=== PATIENT | female | born 1985 | race Caucasian/White ===

== ENCOUNTER 2019-04-14 11:40 | Inpatient (IN) | payer BC ==
[~2019-04-14 11:40] MED LIST: PHENYLEPHRINE-NS 100 MCG/ML 10 ML SYRINGE ONE; ePHEDrine 50 MG/ML VIAL ONE
[2019-04-14] MEDS ORDERED: Promethazine HCl 25 MG/ML VIAL IM PRN ×3 (11:54→17:11)
[2019-04-14] MEDS ORDERED: hydrALAZINE 20 MG/ML VIAL SLOW IVP PRN ×2 (11:54→17:11)
[2019-04-14] MEDS ORDERED: Ondansetron PF 4 MG/2 ML Vial IVP PRN ×3 (11:54→17:11)
[2019-04-14] MEDS ORDERED: CEFAZOLIN 2 GM in Premix Bag 1 BAG IVPB SCH (11:54)
[2019-04-14 12:15] VITALS: BMI 34.3
[2019-04-14 12:25] LABS: Hemoglobin 12.1 g/dL (12.0-16.0); Mean Corpuscular Hemoglobin 31.7 pg (27.0-31.0); Mean Corpuscular Volume 90.7 fL (78.0-98.0); Mean Platelet Volume 7.8 fL (7.4-10.4); Platelet Count 287 thou/uL (130-400); RBC Distribution Width 11.4 % (11.5-14.5)
[2019-04-14] MEDS ORDERED: Bicitra 30 ML UDCUP PO SCH (12:30)
[2019-04-14] MEDS ORDERED: Bicitra 30 ML UDCUP ONE (12:39)
[2019-04-14] MEDS ORDERED: Naloxone HCl 0.4 mg/ml Vial IV PRN (12:43)
[2019-04-14] MEDS ORDERED: Promethazine HCl 25 MG SUPP PR PRN (12:43)
[2019-04-14] MEDS ORDERED: HYDROmorphone 2 MG/ML VIAL SLOW IVP PRN (12:43)
[2019-04-14] MEDS ORDERED: Naloxone HCl 0.4 mg/ml Vial IVP PRN ×2 (12:43)
[2019-04-14] MEDS ORDERED: Ondansetron HCl/PF 4 MG/2 ML Vial IVP PRN (12:43)
[2019-04-14] MEDS ORDERED: diphenhydrAMINE 50 MG/ML VIAL IVP PRN (12:43)
[2019-04-14] MEDS ORDERED: L&D-Morphine 4 MG/ML VIAL SLOW IVP PRN (12:43)
[2019-04-14] MEDS ORDERED: Meperidine HCl/PF 25 MG/ML VIAL SLOW IVP PRN (12:43)
[2019-04-14] MEDS ORDERED: Ketorolac Tromethamine 30 MG/ML VIAL IVP SCH (12:45)
[2019-04-14] MEDS ORDERED: Communication Order-Pharmacy FS SCH (12:45)
[2019-04-14 13:11] LABS: HBSAg Index 0.28 S/CO (0-0.99); Hep B Surf Ag Non-Reactive S/CO (NonReactive); Syphilis Antibody Nonreactive (Nonreactive); Syphilis Antibody Index 0.03 S/CO (<1.00 Non-Reactive)
--- NOTE | 2019-04-14 13:12 | PDOC.LDHP ---
Labor and Delivery H&P Chief complaint: scheduled section HPI: 33yo A1 at 37w3d by LMP here for PCS for breech presentation, GHTN, SUA. No sx PIH, BP at home has been mild range. Pt has had a cough that has improved with zpack. No fever. 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 Current medications: pre-jes vitamins, other (valtrex 500 bid) Previous surgical history: other (carpal tunnel, knee surgery, wide local excision, LEEP x 3, cryotherapy, sinus surgery, egg retrieval, cervical dilation ) Allergies/Adverse Reactions: Allergies Allergy/AdvReac Type Severity Reaction Status Date / Time No Known Allergies Allergy Verified 04/14/19 11:57 Social history: none - Physical Exam Vital signs reviewed and normal: yes General: NAD Heart: RRR Lungs: CTAB Abdomen: gravid Extremeties: no edema FHT: category 1 Pettibone contractions every: none - OB Labs Blood type: A RH: positive Antibody Screen: negative HIV: negative RPR: negative HEPSAg: negative 1 hour GCT: positive 3 hour GTT: neg for GDM GBS: positive Urine drug screen: negative Rubella: immune - Assessment L&D Assessment: scheduled primary section - Plan Plan: admit to L&D, to OR for section, informed consent obtained, anesthesia consult for pain management -: PIH labs ordered, no e/o severe features, will mag for severe features.
[2019-04-14] MEDS ORDERED: MORPHINE 5 MG/10 ML PF VIAL ONE (13:46)
[2019-04-14] MEDS ORDERED: Oxytocin 10 UNITS/ML VIAL ONE (13:46)
[2019-04-14] MEDS ORDERED: ePHEDrine/0.9% NaCl/PF SYRINGE 50 mg/10 ml ONE ×2 (13:46→14:10)
[2019-04-14] MEDS ORDERED: Ondansetron PF 4 MG/2 ML Vial ONE (14:10)
[2019-04-14] MEDS ORDERED: Phenylephrine HCL 10 MG/ML VIAL ONE (14:10)
[2019-04-14] MEDS ORDERED: Bupivacaine 0.75% W/DEXTROSE 8.25% 2 ML AMP ONE (14:11)
--- NOTE | 2019-04-14 14:21 | PDOC.OPDEL ---
OB Operative/Delivery Note Delivery Dr/Surgeon: Ariela Assist: Edwar Pre-Delivery Diagnosis: breech, scheduled section Procedure/Post Delivery Dx: primary low transverse CS Weeks gestation: 37 Anesthesia: spinal - Findings A Sex: male - Additional Findings/Plan Placenta delivered: spontaneous findings: low transverse hysterotomy without extension, normal uterus, normal tubes, normal ovaries Post delivery plan: routine recovery
[2019-04-14] MEDS ORDERED: Lidocaine 2% PF 5 ML VIAL ONE (14:25)
[2019-04-14] MEDS ORDERED: Midazolam HCl 2 mg/2 ml Vial ONE (14:43)
[2019-04-14] MEDS ORDERED: NS / Oxytocin 40 units/1000ml 1,000 ML ONE (15:35)
[2019-04-14] MEDS ORDERED: Ketorolac Tromethamine 30 MG/ML VIAL ONE (16:01)
[2019-04-14] MEDS: Ketorolac Tromethamine 30 MG/ML VIAL IVP PRN ×2 (16:04→21:56)
[2019-04-14] MEDS ORDERED: Meperidine HCl/PF 25 MG/ML VIAL ONE (16:16)
[2019-04-14] MEDS ORDERED: Acetaminophen 325 MG TAB PO PRN (17:11)
[2019-04-14] MEDS ORDERED: Simethicone Chewable 80 MG TAB PO PRN (17:11)
[2019-04-14] MEDS ORDERED: diphenhydrAMINE 25 MG CAP PO PRN (17:11)
[2019-04-14] MEDS ORDERED: Bisacodyl 10 MG SUPP PR PRN (17:11)
[2019-04-14] MEDS ORDERED: Adacel (T-DAP) 0.5 ML SYRINGE IM ONE (17:11)
[2019-04-14] MEDS ORDERED: Lanolin Ointment 7 GM TUBE TOP PRN (17:11)
--- NOTE | 2019-04-14 20:06 | OP ---
DATE OF PROCEDURE: 04/14/2019 PREOPERATIVE DIAGNOSES: 1. Intrauterine at 37 weeks and 3 days. 2. Gestational hypertension. 3. Single umbilical artery. 4. Advanced maternal age. 5. Breech presentation. 6. In vitro fertilization . 7. History of herpes simplex virus. POSTOPERATIVE DIAGNOSES: 1. Intrauterine at 37 weeks and 3 days. 2. Gestational hypertension. 3. Single umbilical artery. 4. Advanced maternal age. 5. Breech presentation. 6. In vitro fertilization . 7. History of herpes simplex virus. PROCEDURE PERFORMED: Primary low-transverse section via Pfannenstiel skin incision. ANESTHESIA: Spinal. CLEAN UP WORKER SURGEON: Shawn Vann MD ESTIMATED BLOOD LOSS: 500 mL. COMPLICATIONS: None. DRAINS: Clancy catheter. PATHOLOGY: None. FINDINGS: Male infant, complete breech presentation, clear amniotic fluid. Apgars and weight are pending. Normal uterus and hysterotomy without extension. Normal-appearing fallopian tubes and ovaries bilaterally. Excellent hemostasis and correct counts. DESCRIPTION OF PROCEDURE: The patient was taken to the operating room, where spinal anesthesia was obtained without difficulty. The patient was prepped and draped in a sterile fashion in the dorsal supine position with a leftward tilt. After ensuring adequacy of anesthesia, a Pfannenstiel skin incision was made and carried down to the underlying subcutaneous tissue with the Bovie. The fascia was nicked in the midline with the Bovie and carried laterally with the Saunders scissors. The superior aspect of the fascia was tented with two Oscar's and dissected off the rectus with the Saunders's. The inferior aspect of the fascia was tented with two Oscar's and dissected off the rectus down to the pubic symphysis with the Saunders's. The rectus was divided in the midline. The peritoneum was bluntly entered into and manually retracted. The Ed O retractor was placed. The lower uterine segment was incised in a transverse fashion and extended with a Miller maneuver. The breech was brought to the hysterotomy. Initially, the right leg delivered, and then the sacrum was rotated to anterior, and the left leg then delivered and the baby was pulled out to the level of the scapula. The baby was rotated in the arms, delivered easily followed by the head with a rotational maneuver. The cord was clamped after delaying the cord, and the was vigorous. Infant was handed to awaiting Regis team. The cord blood was obtained, and placenta was allowed to spontaneously deliver. The uterus was cleared of all clots and debris. The hysterotomy was repaired with 0 Monocryl in a running locking fashion with excellent hemostasis noted. Irrigation was performed of the pelvis, and the Ed O retractor was removed. The rectus muscles were examined and noted to be hemostatic. The fascia was reapproximated with 0 PDS x2 sutures with excellent reapproximation. The skin was irrigated and cauterized of any bleeders and reapproximated with a 2-0 plain gut in a running fashion. The skin was closed with 4-0 Monocryl in a subcuticular fashion. Dermabond was applied as well as a pressure dressing. The patient tolerated the procedure well. Sponge, lap, and needle counts were correct x2. The patient was taken to recovery room in stable condition. The patient received Ancef 2 g prior to the procedure. Job ID: [id number]
[2019-04-14] MEDS: Lactated Ringer's 1,000 ML IV SCH ×2 (21:55→21:57)
[2019-04-14] MEDS: Docusate Calcium (SURFAK) 240 MG CAP PO SCH (21:56)
[2019-04-14] MEDS: Ferrous Sulfate 325 MG TAB PO SCH (21:57)
[2019-04-15] MEDS ORDERED: Zolpidem Tartrate 5 MG TAB PO PRN (00:45)
[2019-04-15] MEDS ORDERED: HYDROcodone/Acetaminophen 5/325 mg Tablet PO PRN (00:45)
[2019-04-15 06:30] LABS: Hemoglobin 10.6 g/dL (12.0-16.0); Mean Corpuscular Hemoglobin 30.4 pg (27.0-31.0); Mean Corpuscular Volume 92.2 fL (78.0-98.0); Mean Platelet Volume 7.9 fL (7.4-10.4); Platelet Count 240 thou/uL (130-400); RBC Distribution Width 11.5 % (11.5-14.5); Red Blood Cell (RBC) Count 3.48 mill/uL (4.20-5.40); White Blood Cell (WBC) Count 13.3 thou/uL (4.8-10.8)
[2019-04-15] MEDS: Ketorolac Tromethamine 30 MG/ML VIAL IVP PRN (06:32)
[2019-04-15] MEDS: Lactated Ringer's 1,000 ML IV SCH ×2 (06:35→22:40)
[2019-04-15] MEDS: Docusate Calcium (SURFAK) 240 MG CAP PO SCH ×2 (09:00→22:11)
[2019-04-15] MEDS: Prenatal Vitamin 1 TAB PO SCH (09:00)
--- NOTE | 2019-04-15 11:21 | OP ---
DATE OF PROCEDURE: 04/14/2019 This report serves as documentation and I was first aid attendant for a primary performed by Dr. Dolly Titus, the primary surgeon. For complete details, please refer to her operative note. Job ID: [id number]
--- NOTE | 2019-04-15 13:20 | PDOC.PP ---
Post Progress Note Post Day #: 1 PO intake tolerated: yes Flatus: yes Ambulation: yes Vital Signs (12 hours) Temp Pulse Resp BP Pulse Ox 04/15/19 12:38 98.3 F 75 20 130/82 96 04/15/19 08:14 98.0 F 74 20 128/67 96 04/15/19 04:35 98.6 F 83 16 129/75 Weight Weight 226 lb - Physical Examination General: NAD Cardiovascular: RRR Respiratory: non-labored breathing Abdominal: no distention, appropriately TTP Fundus firm & at: umb Skin: CS incision dry & intact Neurological: no gross focal deficits Psychiatric: normal affect Result Diagrams: 04/15/19 05:54 Additional Labs: Post Labs Blood Type A POSITIVE 04/14/19 12:47 Hep Bs Antigen Non-Reactive S/CO (NonReactive) 04/14/19 11:59 - Assessment/Plan POD1 s/p PCS for breech, GHTN VSSAF BP wnl, no sx PIH Met appropriate postop milestones Cont Postop care, likely home tomorrow
[2019-04-15] MEDS: Ibuprofen 800 MG TAB PO SCH ×2 (13:37→22:11)
[2019-04-15] MEDS: HYDROcodone/Acetaminophen 5/325 mg Tablet PO PRN ×3 (13:37→22:12)
[2019-04-15] MEDS: Ferrous Sulfate 325 MG TAB PO SCH (22:40)
[2019-04-16] MEDS: HYDROcodone/Acetaminophen 5/325 mg Tablet PO PRN ×5 (05:20→21:30)
[2019-04-16] MEDS: Ibuprofen 800 MG TAB PO SCH ×3 (05:21→21:30)
[2019-04-16] MEDS: Lactated Ringer's 1,000 ML IV SCH ×3 (06:05→20:45)
[2019-04-16] MEDS: Docusate Calcium (SURFAK) 240 MG CAP PO SCH ×2 (09:06→21:30)
[2019-04-16] MEDS: Prenatal Vitamin 1 TAB PO SCH (09:06)
[2019-04-16] MEDS: Ferrous Sulfate 325 MG TAB PO SCH ×2 (09:09→20:45)
--- NOTE | 2019-04-16 10:02 | PDOC.PP ---
Post Progress Note Post Day #: 2 PO intake tolerated: yes Flatus: yes Ambulation: yes Vital Signs (12 hours) Temp Pulse Resp BP Pulse Ox 04/16/19 08:25 98.0 F 70 20 144/80 H 97 04/15/19 23:45 97.9 F 98 20 159/74 H 98 Weight Weight 226 lb - Physical Examination General: NAD Cardiovascular: RRR Respiratory: clear to auscultation bilaterally, non-labored breathing Abdominal: no distention, appropriately TTP Fundus firm & at: umb-2 Extremities: negative homans (B) Skin: CS incision dry & intact (, rash surrounding CS inc where bandage tape present, also erythema around incision extending into mons area, marked with pen to ensure nonexpanding, may be local reaction to tape and bruising, no warmth or induration) Neurological: no gross focal deficits Psychiatric: normal affect Result Diagrams: 04/15/19 05:54 Additional Labs: Post Labs Blood Type A POSITIVE 04/14/19 12:47 Hep Bs Antigen Non-Reactive S/CO (NonReactive) 04/14/19 11:59 - Assessment/Plan POD2 s/p PCS for Breech BP elevated, may need antihypertensives, no sx PIH, other vitals wnl Cough improving on zpack day 4 and tessalon perles, lungs clear Met milestones, cont norco and ibuprofen for pain monitor inc to ensure no e/o expanding infection, clinically appropriately tender Cont to monitor, home tomorrow.
[2019-04-17] MEDS: HYDROcodone/Acetaminophen 5/325 mg Tablet PO PRN ×3 (01:28→10:26)
[2019-04-17] MEDS: Lactated Ringer's 1,000 ML IV SCH ×2 (02:25→10:46)
[2019-04-17] MEDS: Ibuprofen 800 MG TAB PO SCH ×2 (05:24→13:42)
[2019-04-17 08:08] VITALS: BP 133/72; TEMP 98.4
[2019-04-17] MEDS: Ferrous Sulfate 325 MG TAB PO SCH (08:16)
[2019-04-17] MEDS: Docusate Calcium (SURFAK) 240 MG CAP PO SCH (08:25)
[2019-04-17] MEDS: Prenatal Vitamin 1 TAB PO SCH (08:25)
--- NOTE | 2019-04-17 09:15 | PDOC.PP ---
Post Progress Note Post Day #: 3 PO intake tolerated: yes Flatus: yes Ambulation: yes Vital Signs (12 hours) Temp Pulse Resp BP Pulse Ox 04/17/19 08:07 98.4 F 70 20 133/72 95 04/17/19 05:25 68 138/70 04/17/19 01:30 97.7 F 73 18 145/73 H 93 L Weight Weight 226 lb - Physical Examination General: NAD Respiratory: non-labored breathing Abdominal: no distention, appropriately TTP Skin: CS incision dry & intact (redness improved from yesterday, andree ttp, no erythema or warmth) Neurological: no gross focal deficits Psychiatric: normal affect Result Diagrams: 04/15/19 05:54 Additional Labs: Post Labs Blood Type A POSITIVE 04/14/19 12:47 Hep Bs Antigen Non-Reactive S/CO (NonReactive) 04/14/19 11:59 - Assessment/Plan POD3 s/p PCS for breech and GHTN at 37w VSSAF GHTN- BP nl-mild, no sx PIH, will monitor BP at home Pain- cont norco and ibuprofen on DC Cough- improved s/p Zpack Rh pos RImm DC home FU 2 wk
== END 2019-04-17 14:25 | disposition home or self-care (01) | DRG 788 ==
LOC: L&D 11:40 → 3SE 17:53
PROVIDERS: ADMIT Student in an Organized Health Care Education/Training Program; ATTEND Student in an Organized Health Care Education/Training Program
PROC: 10D00Z1 Extraction of Products of Conception, Low, Open Approach (ICD-10-PCS; principal; 2019-04-14)
DX: O32.1XX0 Maternal care for breech presentation, not applicable or unspecified (principal); O13.4 Gestational [pregnancy-induced] hypertension without significant proteinuria, complicating childbirth; O35.8XX0 Maternal care for other (suspected) fetal abnormality and damage, not applicable or unspecified; Z3A.37 37 weeks gestation of pregnancy; Z37.0 Single live birth
CPT/HCPCS: 36415; 51702; 85027; 86780; 86850; 86900; 86901; 87340; 90715; J0690; J1200; J1885; J2001; J2175; J2250; J2274; J2370; J2405; J2590; J3490